=== PATIENT | female | born 1965 | race Caucasian/White ===

== ENCOUNTER 2016-12-08 06:02 | Observation (INO) | payer OTHER ==
[2016-12-06 13:50] LABS: WBC (NOT ORDERED) (RFLEX) 0 (0-5)
[2016-12-06 14:01] LABS: BASOPHILS 0.6 %; BASOPHILS ABSOLUTE 0.05 10/3/uL (0.0-0.16); EOSINOPHILS 1.2 %; HEMATOCRIT 40.3 % (36.0-48.0); HEMOGLOBIN 13.8 g/dL (12.0-16.0); IMMATURE GRANULOCYTES 0.2 %; IMMATURE GRANULOCYTES ABSOLUTE 0.02 10/3/uL (0.0-0.11); LYMPHOCYTES 34.6 %; MANUAL DIFF NO %; MEAN CORPUS HGB CONC 34.2 g/dL (32.0-36.0); MEAN CORPUSCULAR HEMOGLOB 31.9 pg (26.0-34.0); MEAN CORPUSCULAR VOLUME 93.3 fL (80-100); MEAN PLATELET VOLUME 9.6 fL (9.2-13.0); MONOCYTES 4.5 %; MONOCYTES ABSOLUTE 0.39 10/3/uL (0.21-1.20); NEUTROPHILS 58.9 %; PLATELET COUNT 439 10/3/uL (150-400); RBC DISTRIBUTION WIDTH 12.1 % (12.0-16.0); RED CELL COUNT 4.32 10/6/uL (4.0-5.6); WHITE BLOOD CELLS 8.7 10/3/uL (4.5-10.5)
[2016-12-06 14:04] LABS: ASCORBIC ACID (UR NOT ORDER) NEG (NEG); BILIRUBIN, URINE NEGATIVE (NEG); KETONE, URINE NEGATIVE (NEG); LEUKOCYTE ESTERASE(NOT OR NEG (NEG)
[2016-12-06 14:13] LABS: BUN (BLOOD UREA NITROGEN) 9 MG/DL (6-23); CALCIUM, SERUM 8.8 MG/DL (8.5-10.4); CHLORIDE, SERUM 106 MMOL/L (96-112); CO2 (CARBON DIOXIDE) 27 MMOL/L (24-34); CREATININE 0.91 MG/DL (0.55-1.02); GFR AFRICAN AMERICAN 84 ML/MIN (>=60); GFR NON AFRICAN AMERICAN 73 ML/MIN (>=60); SODIUM, SERUM 140 MMOL/L (135-148)
[2016-12-06 14:14] LABS: GLUCOSE, SERUM 116 MG/DL (60-99)
--- NOTE | ~2016-12-08 | OP ---
Record Of Operation [id number] [place]. [address] NAME: KEISHA LUDWIG : 63 STATUS : ADM Velasquez PAT#: [id number] AGE: 51 ADM/REG DATE : 12/08/16 MR#: [id number] REPORT SERV DATE: 12/09/16 DICTATED BY: MEET CORTES DATE: 12/09/16 REPORT STATUS : Draft TRANSCRIBED BY: MODL DATE: 12/09/16 DATE OF PROCEDURE: 12/08/2016 PREOPERATIVE DIAGNOSIS: Pelvic pain. POSTOPERATIVE DIAGNOSES: Pelvic pain, endometriosis, retroperitoneal fibrosis. PROCEDURES: 1. Robot-assisted laparoscopic hysterectomy with bilateral salpingo-oophorectomy for uterus weighing greater than 250 g, CPT code 37152. 2. Bilateral ureterolysis for retroperitoneal fibrosis with repositioning of the ureter, CPT code 85549. 3. Cystoscopy. SURGEON: Meet Cortes MD. ANESTHESIA: General. ESTIMATED BLOOD LOSS: 50 mL. CRYSTALLOID: 2700 mL. URINE OUTPUT: 100 mL. FINDINGS: Extensive endometriosis causing severe anatomic distortion. Her posterior cul-de- sac was obliterated with extensive adhesions from the sigmoid colon to the posterior uterus requiring extensive sharp dissection and mobilization. Her left ovary was grossly abnormal with a large endometriotic cyst. Her right ovary was not identifiable and appeared that there was a large cystic endometrioma along the posterior uterus which may have represented her right ovary, but there was no normal identifiable right adnexal tissue. Her retroperitoneum due to the endometriosis was extremely fibrotic and the ureters were anatomically distorted due to the endometriosis requiring extensive ureterolysis all the way to the level of the ureterovesical junction bilaterally to lateralize the ureter to facilitate safe removal of the uterus, uterine cervix, and adnexa. PATHOLOGY: Uterus, uterine cervix, bilateral fallopian tubes, and ovaries. COMPLICATIONS: None. POSTOPERATIVE PLAN: Extubated to PACU. PROCEDURE IN DETAIL: After informed consent was signed, the patient was taken to the operating room and placed in dorsal supine position where adequate general anesthesia was administered. She was placed in dorsal lithotomy position in Jonel stirrups and prepped and draped in usual fashion. A Murrieta catheter was placed. The uterus was sounded, cervix dilated, and the RHEA uterine manipulator was assembled and deployed. A midline incision Record Of Operation [place] [id number] [place]. [address] NAME: KEISHA LUDWIG : 63 STATUS : ADM Velasquez PAT#: [id number] AGE: 51 ADM/REG DATE : 12/08/16 MR#: [id number] REPORT SERV DATE: 12/09/16 DICTATED BY: MEET CORTES DATE: 12/09/16 REPORT STATUS : Draft TRANSCRIBED BY: MODLizett DATE: 12/09/16 was made with a scalpel and carried down to the fascia which was incised, muscles , posterior sheath entered sharply, trocar placed, and abdomen insufflated with CO2 gas. Additional robot trocars were placed in the bilateral upper quadrants and right lateral flank and an legislative assistant port placed into the left upper quadrant, all under direct visualization. The patient was then placed in steep Trendelenburg and the robot docked in the usual fashion. Bilateral round ligaments were taken with bipolar cautery and transected with monopolar scissors. The pelvic peritoneum was taken down lateral and parallel to the infundibulopelvic ligament. With the ureters identified and reflected medially, clips were placed in the origins of the uterine arteries bilaterally. Extensive evaluation of the pelvis was performed with findings noted as above. At that point, it was determined that neither ovary was normal in appearance and both needed to be removed. Both infundibulopelvic ligaments were isolated, taken with bipolar cautery, and transected with monopolar scissors. There was extensive adhesive disease of the sigmoid colon to the posterior cul-de-sac. This was then taken down using sharp dissection and then the rectovaginal space was then entered which allowed mobilization of the sigmoid colon off the posterior vagina. The retroperitoneum was extensively fibrotic and so bilateral ureterolysis was performed. Both ureters were tunneled underneath the uterine arteries to the level of the ureterovesical junction allowing for electrocautery of the uterine vessels just lateral to the parametria. Posterior colpotomy was made after mobilization of the sigmoid colon off the posterior vagina. The vesicouterine peritoneum was then incised and the bladder taken down well beneath the level of the anterior CHELSY ring and anterior colpotomy was made. The uterine vessels were then transected just lateral to the cervix and reflected off the parametria and over the ureter to just lateral to the ureter making this somewhat similar to a type 2 radical hysterectomy. The ureters were then reflected laterally and both anterior and posterior colpotomies were connected using monopolar scissors, and the uterus, uterine cervix, and bilateral adnexa were then brought out through the vagina. The pelvis was irrigated with copious amounts of irrigation fluid. The vagina was then closed with 0 180 V-Loc suture with a running stitch. All instruments were removed from the abdomen. The robot was undocked and the CO2 gas evacuated. The Murrieta catheter was removed and the cystoscope placed through the urethra and the bladder distended with appropriate media. Bilateral brisk ureteral jets were noted suggesting bilateral ureteral patency. The cystoscope was removed and the bladder drained. The fascia from the midline incision and the left upper quadrant incision were closed with 0 Vicryl suture and the skin from all trocar sites was closed with 4-0 Monocryl and Dermabond. At this point, Dr. Harmeet Ann came in and performed a urethral sling procedure. Please see his dictation for further details. Overall, the patient tolerated my portion of procedure well. TB/IVORYL Meet Cortes MD / [id number] CC: Record Of Operation [address] [address] NAME: KEISHA LUDWIG : 63 STATUS : ADM Velasquez PAT#: [id number] AGE: 51 ADM/REG DATE : 12/08/16 MR#: [id number] REPORT SERV DATE: 12/09/16 DICTATED BY: MEET CORTES DATE: 12/09/16 REPORT STATUS : Draft TRANSCRIBED BY: MODL DATE: 12/09/16 Meet Cortes MD
--- NOTE | ~2016-12-08 | OP ---
Record Of Operation [facility] [address] [place]. [address] NAME: KEISHA LUDWIG : 63 STATUS : ADM Velasquez PAT#: [id number] AGE: 51 ADM/REG DATE : 12/08/16 MR#: [id number] REPORT SERV DATE: 12/10/16 DICTATED BY: REDD ANN DATE: 12/09/16 REPORT STATUS : Draft TRANSCRIBED BY: SEKOU DATE: 12/09/16 DATE OF PROCEDURE: 12/08/2016 ANESTHESIA: General. COMPLICATIONS: None. ESTIMATED BLOOD LOSS: 25 mL. PREOPERATIVE DIAGNOSIS: Stress urinary incontinence. POSTOPERATIVE DIAGNOSIS: Stress urinary incontinence. OPERATION: 1. Advantage Fit suburethral sling. 2. Cystoscopy. PROCEDURE: After Dr. Meet Cortes finished his portion of the case, we dissected the anterior vaginal wall off underlying anterior fibromuscular tissue. Using advantage Fit suburethral sling, needles were inserted upward through the retropubic space and the mesh was placed just distal to the urethrovesical junction without any tension. The anterior compartment was irrigated. Hemostasis noted to be good. Excess anterior vaginal wall was excised and reapproximated with running to 2-0 Vicryl suture. Cystoscopy was performed. There was bilateral ureteral efflux of Pyridium dye. No damage or sutures to the bladder. Murrieta and vaginal pack were placed. The patient tolerated the procedure well and was taken to the recovery room in stable condition. ARNOLD Redd Ann M.D. / [id number] CC: MD Ibrahima Devlin Jr., D.O.
[~2016-12-08 06:02] MED LIST: BEN25 PO; BENADRYL 50 MG50 MG PO; CRANBERRY PO; CRANBERRY300 MG PO; DOCUSOFT S100 MG PO; FIORINALC PO; LORTAB10 PO; MACROBID PO; MEDROLPAK4 PO; METHOC500B PO; METHOC750B PO; NAP500 PO; NORCO1 TA1 PO; PR25 PO; RELA5 PO; ZOFRAN8 PO; [UNRECOGNIZED DRUG - CODE]; [UNRECOGNIZED DRUG - OTHER] PO
[2016-12-09 05:17] LABS: BASOPHILS 0 %; EOSINOPHILS 0 %; HEMOGLOBIN 11.2 g/dL (12.0-16.0); IMMATURE GRANULOCYTES 0.2 %; IMMATURE GRANULOCYTES ABSOLUTE 0.03 10/3/uL (0.0-0.11); LYMPHOCYTES 13.5 %; LYMPHOCYTES ABSOLUTE 1.93 10/3/uL (0.67-4.30); MEAN CORPUS HGB CONC 33.1 g/dL (32.0-36.0); MEAN CORPUSCULAR HEMOGLOB 31.4 pg (26.0-34.0); MEAN CORPUSCULAR VOLUME 94.7 fL (80-100); MEAN PLATELET VOLUME 9.7 fL (9.2-13.0); MONOCYTES 7.9 %; MONOCYTES ABSOLUTE 1.14 10/3/uL (0.21-1.20); NEUTROPHILS 78.4 %; NEUTROPHILS ABSOLUTE 11.24 10/3/uL (2.02-8.40); PLATELET COUNT 353 10/3/uL (150-400); RBC DISTRIBUTION WIDTH 12.3 % (12.0-16.0); RED CELL COUNT 3.57 10/6/uL (4.0-5.6)
[2016-12-09 05:24] LABS: HEMATOCRIT 33.8 % (36.0-48.0); MANUAL DIFF NO %; WHITE BLOOD CELLS 14.3 10/3/uL (4.5-10.5)
[2016-12-09 05:25] LABS: BUN (BLOOD UREA NITROGEN) 9 MG/DL (6-23); CALCIUM, SERUM 8.7 MG/DL (8.5-10.4); CHLORIDE, SERUM 112 MMOL/L (96-112); CO2 (CARBON DIOXIDE) 27 MMOL/L (24-34); CREATININE 0.94 MG/DL (0.55-1.02); GFR AFRICAN AMERICAN 81 ML/MIN (>=60); GFR NON AFRICAN AMERICAN 70 ML/MIN (>=60); GLUCOSE, SERUM 117 MG/DL (60-99); POTASSIUM, SERUM 4.5 MMOL/L (3.5-5.3); SODIUM, SERUM 144 MMOL/L (135-148)
[2016-12-09 17:11] LABS: WBC (NOT ORDERED) (RFLEX) 0 (0-5)
[2016-12-09 17:27] LABS: ASCORBIC ACID (UR NOT ORDER) NEG (NEG); BILIRUBIN, URINE NEGATIVE (NEG); KETONE, URINE NEGATIVE (NEG); LEUKOCYTE ESTERASE(NOT OR NEG (NEG)
[2016-12-10] MEDS ORDERED: NORCO1 TA1 PO (09:13)
[2016-12-10] MEDS ORDERED: COMP10B PO (09:16)
== END 2016-12-10 11:50 | disposition home or self-care (01) ==
LOC: SDC 06:02 → SDC/OF 11:52 → 4EA 13:50
PROVIDERS: Obstetrics & Gynecology Gynecology
PROC: 0UT24ZZ Resection of Bilateral Ovaries, Percutaneous Endoscopic Approach (ICD-10-PCS; 2016-12-08)
PROC: 0UT74ZZ Resection of Bilateral Fallopian Tubes, Percutaneous Endoscopic Approach (ICD-10-PCS; 2016-12-08)
PROC: 0TN74ZZ Release Left Ureter, Percutaneous Endoscopic Approach (ICD-10-PCS; 2016-12-08)
PROC: 0TN64ZZ Release Right Ureter, Percutaneous Endoscopic Approach (ICD-10-PCS; 2016-12-08)
PROC: 0TSD0ZZ Reposition Urethra, Open Approach (ICD-10-PCS; principal; 2016-12-08 07:00)
PROC: 0UT94ZZ Resection of Uterus, Percutaneous Endoscopic Approach (ICD-10-PCS; 2016-12-08 07:00)
PROC: 0UTC4ZZ Resection of Cervix, Percutaneous Endoscopic Approach (ICD-10-PCS; 2016-12-08 07:00)
DX: N80.0 Endometriosis of uterus (principal); N80.1 Endometriosis of ovary; N80.2 Endometriosis of fallopian tube; N13.5 Crossing vessel and stricture of ureter without hydronephrosis; E28.2 Polycystic ovarian syndrome; Z88.5 Allergy status to narcotic agent; Z88.2 Allergy status to sulfonamides; Z90.89 Acquired absence of other organs; Z79.899 Other long term (current) drug therapy; Z98.890 Other specified postprocedural states; Z98.1 Arthrodesis status
CPT/HCPCS: 36415; 71020; 71275; 80048; 81001; 84703; 85025; 86850; 86900; 86901; 88112; 88305; 88309; 93005; 96374; 96375; 96376; A9270-GY; C1771; G0378; J0694; J1170; J1885; J2250; J2405; J2710; J2795; J3010; Q9967